=== PATIENT | female | born 1940 | race Caucasian/White ===

== ENCOUNTER 2018-05-25 08:01 | Outpatient (CLI) | payer MEDICARE, OTHER ==
[~2018-05-25 08:01] MED LIST: ASPI81TA52 PO; ATOR10TA87 PO; CARV-49 PO; CLON-529 PO; LISI-600 PO; ZOLP10TA5 PO
[2018-05-25 08:36] LABS: BASOPHILS # (AUTO) 0.1 X10'3 (0-0.2); BASOPHILS % (AUTO) 0.9 % (0-1); EOSINOPHILS # (AUTO) 0.1 X10'3 (0-0.9); EOSINOPHILS % (AUTO) 2.4 % (0-6); HEMATOCRIT 36.7 % (35.0-45.0); HEMOGLOBIN 12.5 g/dl (12.0-16.0); LYMPHOCYTES # (AUTO) 1.3 X10'3 (1.1-4.8); MEAN CORPUSCULAR HEMOGLOBIN 31.3 PG (27.0-31.0); MEAN PLATELET VOLUME 8.3 FL (7.4-10.4); MONOCYTES # (AUTO) 0.4 X10'3 (0-0.9); MONOCYTES % (AUTO) 6.8 % (2-12); NEUTROPHILS # (AUTO) 3.7 X10'3 (1.8-7.7); NEUTROPHILS % (AUTO) 65.9 % (42-75); PLATELET COUNT 223 X10'3 (140-440); RED BLOOD COUNT 3.99 X10'6 (4.20-5.60); RED CELL DISTRIBUTION WIDTH 14.9 % (11.5-14.5); WHITE BLOOD COUNT 5.6 X10'3 (4.5-11.0)
[2018-05-25 08:42] LABS: CLARITY,URINE CLOUDY (Clear); COLOR,URINE STRAW (Yellow); GLUCOSE, URINE NEGATIVE (Neg); KETONES,URINE NEGATIVE (Neg); LEUKOCYTE ESTERASE ,URINE MODERATE (Neg); NITRITES, URINE NEGATIVE (Neg); OCCULT BLOOD,URINE NEGATIVE (Neg); PROTEIN,URINE NEGATIVE (Neg); UROBILINOGEN,URINE 0.2 E.U/dL (0.2-1.0)
[2018-05-25 08:44] LABS: UA COLLECTION TYPE CLN CATCH MIDSTREAM
[2018-05-25 08:53] LABS: ALANINE AMINOTRANSFERASE 14 U/L (12-78); ALBUMIN 3.8 G/DL (3.4-5.0); ALBUMIN/GLOBULIN RATIO 0.9 (1.1-1.5); ALKALINE PHOSPHATASE 127 IU/L (46-116); ANION GAP 8 (8-16); ASPARTATE AMINO TRANSFERASE 8 U/L (10-37); BILIRUBIN,TOTAL 0.5 MG/DL (0.1-1.0); BLOOD UREA NITROGEN 46 MG/DL (7-18); BUN/CREATININE RATIO 17.7 (6.6-38.0); CALCIUM 8.1 MG/DL (8.5-10.1); CHLORIDE 102 MMOL/L (99-107); CHOL/HDL RATIO 3.1 (0.00-4.99); CHOLESTEROL 171 MG/DL (0-200); GLUCOSE 112 MG/DL (70-104); HDL CHOLESTEROL 55 MG/DL (35-60); LDL CHOLESTEROL 93 MG/DL (50-100); POTASSIUM 4.7 MMOL/L (3.5-5.1); SODIUM 137 MMOL/L (135-145); TOTAL PROTEIN 8.2 G/DL (6.4-8.2); TRIGLYCERIDES 139 MG/DL (20-135); eGFR 18 ML/MIN
[2018-05-25 08:55] LABS: BACTERIA,URINE 1+ /HPF (Neg); RBC,URINE NONE SEEN /HPF (0-2); SQUAMOUS EPITHELIAL CELL,UR MANY /LPF (FEW); WBC,URINE 20-30 /HPF (0-4)
[2018-05-25 08:56] LABS: MUCUS STRANDS NONE SEEN /LPF (Neg); RENAL CELLS, URINE MODERATE /HPF; WBC CLUMPS,URINE FEW /HPF (NEGATIVE)
== END 2018-05-25 23:59 | disposition home or self-care (01) ==
LOC: LAB 08:01
PROVIDERS: ATTEND Family Medicine
DX: E78.5 Hyperlipidemia, unspecified (principal); I25.10 Atherosclerotic heart disease of native coronary artery without angina pectoris; R53.83 Other fatigue; I11.0 Hypertensive heart disease with heart failure; I50.9 Heart failure, unspecified; Z87.891 Personal history of nicotine dependence
CPT/HCPCS: 36415; 80053; 80061; 81001; 84443; 85025

== ENCOUNTER 2018-05-25 11:45 | Outpatient (CLI) | payer MEDICARE, OTHER | END 2018-05-25 23:59 | disposition home or self-care (01) | LOC: VAS 11:45 | PROVIDERS: ATTEND Family Medicine | DX: I70.203 Unspecified atherosclerosis of native arteries of extremities, bilateral legs (principal); I11.0 Hypertensive heart disease with heart failure; I50.9 Heart failure, unspecified; Z87.891 Personal history of nicotine dependence | CPT/HCPCS: 93922; 93925; 93970 ==

== ENCOUNTER 2018-08-14 10:22 | Outpatient (CLI) | payer MEDICARE, OTHER ==
[~2018-08-14 10:22] MED LIST changes: +TRAM50TA2 PO; -ZOLP10TA5 PO
[2018-08-14 14:11] LABS: CLARITY,URINE CLEAR (Clear); COLOR,URINE YELLOW (Yellow); GLUCOSE, URINE NEGATIVE (Neg); KETONES,URINE NEGATIVE (Neg); LEUKOCYTE ESTERASE ,URINE SMALL (Neg); NITRITES, URINE NEGATIVE (Neg); OCCULT BLOOD,URINE NEGATIVE (Neg); PH,URINE 5.5 (4.8-8.0); PROTEIN,URINE NEGATIVE (Neg); UROBILINOGEN,URINE 0.2 E.U/dL (0.2-1.0)
[2018-08-14 14:14] LABS: UA COLLECTION TYPE CLN CATCH MIDSTREAM
[2018-08-14 14:20] LABS: RBC,URINE NONE SEEN /HPF (0-2)
[2018-08-14 14:21] LABS: BACTERIA,URINE FEW /HPF (Neg); SQUAMOUS EPITHELIAL CELL,UR MODERATE /LPF (FEW)
[2018-08-14 14:22] LABS: RENAL CELLS, URINE FEW /HPF
== END 2018-08-14 23:59 | disposition home or self-care (01) ==
LOC: LAB 10:22
PROVIDERS: ATTEND Internal Medicine Interventional Cardiology
DX: Z00.00 Encounter for general adult medical examination without abnormal findings (principal); I13.0 Hypertensive heart and chronic kidney disease with heart failure and stage 1 through stage 4 chronic kidney disease, or unspecified chronic kidney disease; N18.9 Chronic kidney disease, unspecified; I50.9 Heart failure, unspecified; Z98.51 Tubal ligation status; Z79.82 Long term (current) use of aspirin; Z87.891 Personal history of nicotine dependence; Z79.891 Long term (current) use of opiate analgesic
CPT/HCPCS: 81001; 87088

== ENCOUNTER 2018-10-08 07:59 | Emergency (ER) | payer MEDICARE, OTHER ==
[~2018-10-08] VITALS: Ht 157.5 cm; Wt 72.7 kg
[~2018-10-08 07:59] MED LIST changes: -TRAM50TA2 PO
[2018-10-08 09:23] LABS: BASOPHILS % (AUTO) 0.5 % (0-1); EOSINOPHILS # (AUTO) 0.1 X10'3 (0-0.9); HEMATOCRIT 31.4 % (35.0-45.0); HEMOGLOBIN 10.4 g/dl (12.0-16.0); LYMPHOCYTES # (AUTO) 1.2 X10'3 (1.1-4.8); LYMPHOCYTES % (AUTO) 26.9 % (21-51); MEAN CORPUSCULAR HEMOGLOBIN 31.3 PG (27.0-31.0); MEAN CORPUSCULAR HGB CONC 33.1 % (33.0-36.5); MEAN CORPUSCULAR VOLUME 94.4 FL (78-98); MEAN PLATELET VOLUME 8.4 FL (7.4-10.4); MONOCYTES # (AUTO) 0.3 X10'3 (0-0.9); NEUTROPHILS # (AUTO) 2.7 X10'3 (1.8-7.7); NEUTROPHILS % (AUTO) 62.6 % (42-75); PLATELET COUNT 215 X10'3 (140-440); RED BLOOD COUNT 3.32 X10'6 (4.20-5.60); RED CELL DISTRIBUTION WIDTH 15.2 % (11.5-14.5); WHITE BLOOD COUNT 4.3 X10'3 (4.5-11.0)
[2018-10-08 09:27] LABS: ALANINE AMINOTRANSFERASE 15 U/L (12-78); ALBUMIN 3.4 G/DL (3.4-5.0); ALBUMIN/GLOBULIN RATIO 0.8 (1.1-1.5); ALKALINE PHOSPHATASE 106 IU/L (46-116); ANION GAP 9 (8-16); ASPARTATE AMINO TRANSFERASE 9 U/L (10-37); BILIRUBIN,TOTAL 0.3 MG/DL (0.1-1.0); BLOOD UREA NITROGEN 38 MG/DL (7-18); BUN/CREATININE RATIO 13.8 (6.6-38.0); CALCIUM 7.6 MG/DL (8.5-10.1); CHLORIDE 102 MMOL/L (99-107); CREATININE 2.75 MG/DL (0.40-0.90); GLUCOSE 93 MG/DL (70-104); POTASSIUM 4.4 MMOL/L (3.5-5.1); SODIUM 139 MMOL/L (135-145); TOTAL CARBON DIOXIDE 27.8 MMOL/L (24-32); TOTAL PROTEIN 7.5 G/DL (6.4-8.2); eGFR 17 ML/MIN
[2018-10-08 10:35] VITALS: BP 107/55
== END 2018-10-08 12:21 | disposition home or self-care (01) ==
LOC: ER 08:01
DX: I73.9 Peripheral vascular disease, unspecified (principal); I13.0 Hypertensive heart and chronic kidney disease with heart failure and stage 1 through stage 4 chronic kidney disease, or unspecified chronic kidney disease; N18.9 Chronic kidney disease, unspecified; I50.9 Heart failure, unspecified; I25.2 Old myocardial infarction; Z87.891 Personal history of nicotine dependence; Z90.710 Acquired absence of both cervix and uterus; Z98.890 Other specified postprocedural states; Z88.5 Allergy status to narcotic agent; Z79.82 Long term (current) use of aspirin; Z79.899 Other long term (current) drug therapy
CPT/HCPCS: 36415; 80053; 85025; 93922; 93926; 99284

== ENCOUNTER 2019-05-21 14:07 | Outpatient (CLI) | payer MEDICARE, OTHER | END 2019-05-21 23:59 | disposition home or self-care (01) | LOC: VAS 14:07 | PROVIDERS: ATTEND Surgery | DX: Z01.818 Encounter for other preprocedural examination (principal) | CPT/HCPCS: 93971 ==

== ENCOUNTER 2020-08-31 21:02 | Inpatient (IN) | payer MEDICARE, OTHER ==
[~2020-08-31] VITALS: Ht 152.4 cm; Wt 65.0 kg
[2020-08-31] MEDS ORDERED: HYDROcodone/acetaminophen 10/325mg tab PO ONE (21:30)
--- NOTE | 2020-08-31 22:06 | NUR ---
DR JACK APPROVED PT DAUGHTER VIVIAN AT BEDSIDE FOR DISCHARGE INSTRUCTIONS .
--- NOTE | 2020-08-31 22:10 | NUR ---
[employer] CALLED UNIT . THEY WILL BE HERE IN 25 MINUTES
--- NOTE | 2020-08-31 22:37 | NUR ---
C[employer] AT BEDSIDE
--- NOTE | 2020-08-31 22:42 | NUR ---
DR JACK TO TALK WITH PT DAUGHTER ABOUT DISCHARGE HOME
[2020-08-31 23:11] LABS: BASOPHILS % (AUTO) 0.5 % (0-1); EOSINOPHILS # (AUTO) 0.2 X10'3 (0-0.9); EOSINOPHILS % (AUTO) 1.9 % (0-6); HEMOGLOBIN 10.7 g/dl (12.0-16.0); LYMPHOCYTES # (AUTO) 1.4 X10'3 (1.1-4.8); LYMPHOCYTES % (AUTO) 18.1 % (21-51); MEAN CORPUSCULAR HEMOGLOBIN 31.6 PG (27.0-31.0); MEAN CORPUSCULAR HGB CONC 32.4 g/dL (33.0-36.5); MEAN CORPUSCULAR VOLUME 97.7 FL (78-98); MEAN PLATELET VOLUME 8.7 FL (7.4-10.4); MONOCYTES # (AUTO) 0.5 X10'3 (0-0.9); MONOCYTES % (AUTO) 6.4 % (2-12); NEUTROPHILS # (AUTO) 5.7 X10'3 (1.8-7.7); NEUTROPHILS % (AUTO) 73.1 % (42-75); PLATELET COUNT 232 X10'3 (140-440); RED BLOOD COUNT 3.38 X10'6 (4.20-5.60); RED CELL DISTRIBUTION WIDTH 14.3 % (11.5-14.5); WHITE BLOOD COUNT 7.8 X10'3 (4.5-11.0)
[2020-08-31 23:26] LABS: ALANINE AMINOTRANSFERASE 14 U/L (12-78); ALBUMIN 3.7 G/DL (3.4-5.0); ALBUMIN/GLOBULIN RATIO 0.9 (1.1-1.5); ALKALINE PHOSPHATASE 120 IU/L (46-116); ANION GAP 11 (8-16); ASPARTATE AMINO TRANSFERASE 9 U/L (10-37); BILIRUBIN,TOTAL 0.4 MG/DL (0.1-1.0); BLOOD UREA NITROGEN 35 MG/DL (7-18); BUN/CREATININE RATIO 14.8 (6.6-38.0); CALCIUM 6.8 MG/DL (8.5-10.1); CHLORIDE 100 MMOL/L (99-107); CREATININE 2.37 MG/DL (0.40-0.90); GLUCOSE 128 MG/DL (70-104); LIPASE 127 U/L (73-393); POTASSIUM 4.4 MMOL/L (3.5-5.1); SODIUM 137 MMOL/L (135-145); TOTAL CARBON DIOXIDE 26.2 MMOL/L (24-32); TOTAL PROTEIN 7.6 G/DL (6.4-8.2); eGFR 20 ML/MIN
--- NOTE | 2020-08-31 23:50 | NUR ---
pt will no longer be discharged home she will be monitored overnight for further evaluation and possible discharge in AM post social service consult .
[2020-09-01] MEDS ORDERED: bisacodyl 10mg suppository rectal RC PRN (00:05)
[2020-09-01] MEDS ORDERED: metoclopramide 5 mg/ml inj IV PRN (00:05)
[2020-09-01] MEDS ORDERED: ondansetron/PF 4mg/2ml inj IV PRN (00:05)
[2020-09-01] MEDS ORDERED: acetaminophen 325mg tablet PO PRN ×2 (00:05)
[2020-09-01] MEDS ORDERED: morphine 2 MG/ML inj. syringe IV PRN ×2 (00:05)
[2020-09-01] MEDS ORDERED: magnesium 2GM in 50ml NS 50 ML IV PRN (00:05)
[2020-09-01] MEDS ORDERED: potassium Cl 20 mEq SR tablet PO PRN ×2 (00:05)
[2020-09-01] MEDS ORDERED: mag hydrox/Alum hydrox/simeth 30ml oral suspension PO PRN (00:05)
[2020-09-01] MEDS ORDERED: potassium CL 10mEq/100ml bag 100 ML IV PRN ×2 (00:05)
[2020-09-01] MEDS ORDERED: magnesium 4gm in 100ml NS 100 ML IV PRN (00:05)
[2020-09-01] MEDS ORDERED: magnesium hydroxide 30ml (MOM) UD suspension PO PRN (00:05)
[2020-09-01] MEDS ORDERED: magnesium Cl slow-release 64mg tablet PO PRN (00:05)
[2020-09-01] MEDS ORDERED: LIDOcaine 2% 10ml TOPICAL JELLY (Urojet) TP ONE (00:15)
[2020-09-01 01:00] LABS: CLARITY,URINE CLEAR (Clear); COLOR,URINE YELLOW (Yellow); GLUCOSE, URINE NEGATIVE (Neg); KETONES,URINE NEGATIVE (Neg); LEUKOCYTE ESTERASE ,URINE NEGATIVE (Neg); NITRITES, URINE NEGATIVE (Neg); OCCULT BLOOD,URINE NEGATIVE (Neg); PH,URINE 5.5 (4.8-8.0); PROTEIN,URINE NEGATIVE (Neg); UROBILINOGEN,URINE 0.2 E.U/dL (0.2-1.0)
[2020-09-01 01:02] LABS: UA COLLECTION TYPE STRAIGHT CATH
[2020-09-01] MEDS: normal saline 1000ml 1,000 ML IV SCH ×2 (01:30→14:23)
[2020-09-01] MEDS ORDERED: HYDROcodone/acetaminophen 5mg/325mg tablet PO PRN (02:30)
[2020-09-01] MEDS ORDERED: HYDROcodone/acetaminophen 10/325mg tab PO PRN (02:30)
--- NOTE | 2020-09-01 02:30 | NUR ---
Dr Fine contacted in regards to patient not wanting a oglesby cath or iv . pt states she" was going to go home without those thtypes of things why do i need them now " pt refusing iv and would prefer po medications . Md verbalized that patient does not have to have an iv placed nor th oglesby as long as she tolerates po intake and is able to void .pt verbalized understanding . iv not started . pt given 2nd dose of norco 10 PO
[2020-09-01] MEDS ORDERED: HYDROcodone/acetaminophen 5mg/325mg tablet PO ONE (02:35)
[2020-09-01] MEDS ORDERED: HYDROcodone/acetaminophen 10/325mg tab PO ONE (02:35)
[2020-09-01 06:15] VITALS: BP 117/65
--- NOTE | 2020-09-01 06:15 | NUR ---
Received pt from ED. Pt transferred from [facility] to bed. Pt has short leg splint on LLE. Elevated on a pillow at this time. Pt denies pain at this time. Spoke with [facility] MINING ANALYST, who informed that she had spoke to Dr. Elva Will who wants the short leg splint removed and pt put in a walking boot. Pt is full WB bilateral LE. (0900) EMIR Poole & EMIR Elizondo attempted to get the pt out of bed to urinate on the BSC. Pt would not stand up on either leg and bear weight. Pt did not stand to transfer and they assisted her back to bed. Pt refuses to have IV started despite orders for NS @ 70/hr. Will continue to monitor.
[2020-09-01] MEDS: K and/or MAG REPLACEMENT MC SCH ×2 (08:00→20:00)
[2020-09-01] MEDS: heparin, porcine 5000 units/ml vial SQ SCH ×2 (08:49→21:23)
[2020-09-01 10:00] VITALS: BP 102/64
--- NOTE | 2020-09-01 17:00 | NUR ---
Pt not drinking fluids today. Encouraged fluids multiple times today as pt has elevated kidney function on BMP. Pt refusing to stand up to BSC despite being full WB, and has been unable to void via bedpan. Bladder scan done at 1700 with 333 cc noted on bladder scan. Discussed with pt that the two options would be either to get a oglesby catheter order from Dr. Washburn or to get up to the bedside commode. Pt voiced she does not want either done. Will pass on to NOCS to bladder scan pt as she has been unable to void since 614.
--- NOTE | 2020-09-01 18:30 | NUR ---
Patient in room ORTHO 4023. I have received report from Kaela BAUTISTA and had the opportunity to ask questions and assume patient care.
--- NOTE | 2020-09-01 18:37 | NUR ---
Problems reprioritized. Patient report given, questions answered & plan of care reviewed with LILY Jolly.
[2020-09-01] MEDS ORDERED: DULO30CA52 PO (19:58)
[2020-09-01] MEDS ORDERED: CLOP75TA35 PO (19:58)
[2020-09-01] MEDS ORDERED: GABA300C PO ×2 (19:58→20:41)
[2020-09-01] MEDS ORDERED: FURO20TA4 PO (19:58)
[2020-09-01] MEDS ORDERED: ATOR20TA66 PO (20:41)
[2020-09-01] MEDS ORDERED: LISI10TA4 PO (20:41)
[2020-09-01] MEDS ORDERED: clopidogrel 75mg tablet PO SCH (21:00)
[2020-09-01] MEDS ORDERED: gabapentin 300mg capsule PO SCH (21:00)
[2020-09-01] MEDS ORDERED: atorvastatin 20mg tablet PO SCH (21:00)
[2020-09-01] MEDS ORDERED: cloNIDine 0.1 mg tablet PO SCH (21:00)
[2020-09-01] MEDS ORDERED: temazepam 15mg capsule PO PRN (21:00)
[2020-09-02] MEDS: normal saline 1000ml 1,000 ML IV SCH (04:41)
[2020-09-02 05:55] VITALS: BP 104/53
[2020-09-02 06:03] LABS: ALBUMIN 3.1 G/DL (3.4-5.0); ANION GAP 12 (8-16); BLOOD UREA NITROGEN 43 MG/DL (7-18); BUN/CREATININE RATIO 16.7 (6.6-38.0); CALCIUM 6.9 MG/DL (8.5-10.1); CHLORIDE 103 MMOL/L (99-107); CREATININE 2.58 MG/DL (0.40-0.90); GLUCOSE 114 MG/DL (70-104); HEMATOCRIT 30.3 % (35.0-45.0); MAGNESIUM 1.9 MG/DL (1.5-2.4); MEAN CORPUSCULAR HEMOGLOBIN 32.8 PG (27.0-31.0); MEAN CORPUSCULAR HGB CONC 33.1 g/dL (33.0-36.5); MEAN CORPUSCULAR VOLUME 98.9 FL (78-98); MEAN PLATELET VOLUME 8.8 FL (7.4-10.4); PLATELET COUNT 212 X10'3 (140-440); POTASSIUM 4.6 MMOL/L (3.5-5.1); RED BLOOD COUNT 3.06 X10'6 (4.20-5.60); RED CELL DISTRIBUTION WIDTH 14.4 % (11.5-14.5); SODIUM 137 MMOL/L (135-145); TOTAL CARBON DIOXIDE 21.8 MMOL/L (24-32); WHITE BLOOD COUNT 6.1 X10'3 (4.5-11.0); eGFR 18 ML/MIN
--- NOTE | 2020-09-02 06:49 | NUR ---
Problems reprioritized. Patient report given, questions answered & plan of care reviewed with Dominique BAUTISTA. .
--- NOTE | 2020-09-02 07:14 | NUR ---
Patient in room ORTHO 4023b. I have received report from Ev BAUTISTA and had the opportunity to ask questions and assume patient care.
[2020-09-02] MEDS: gabapentin 300mg capsule PO SCH ×2 (08:00→11:00)
[2020-09-02] MEDS ORDERED: furosemide 20MG tablet PO SCH (08:00)
[2020-09-02] MEDS: heparin, porcine 5000 units/ml vial SQ SCH (08:00)
[2020-09-02] MEDS ORDERED: carvedilol 6.25mg tablet PO SCH (08:00)
[2020-09-02] MEDS ORDERED: aspirin 81mg tablet.DR PO SCH (08:00)
[2020-09-02] MEDS: K and/or MAG REPLACEMENT MC SCH (08:00)
[2020-09-02] MEDS ORDERED: lisinopril 10 MG tablet PO SCH (08:00)
[2020-09-02] MEDS ORDERED: duloxetine 30mg CAPSULE.DR PO SCH (08:00)
[2020-09-02 10:00] VITALS: BP 107/49
[2020-09-02] MEDS ORDERED: FLU VACC QS2020-21(6MOS UP)/PF 60 MCG/0.5 ML SYRINGE IMVAC ONE (10:00)
--- NOTE | 2020-09-02 13:00 | NUR ---
Gave report to [facility]
--- NOTE | 2020-09-02 13:30 | NUR ---
Tele monitor taken off, pt. changed and informed of transfer, pt's daughter was notified of the transfer
--- NOTE | 2020-09-02 15:30 | NUR ---
Patient was picked up to transfer to [facility]
--- NOTE | 2020-09-02 17:48 | NUR ---
Student documentation: I have reviewed and agree with all interventions, assessments performed and documented by RENETTA TREVINO. Student Medication Administration: For this medication-pass time frame, all medication were reviewed, dispensed, administered and documented per hospital policy by RENETTA TREVION.
[2020-09-02] MEDS ORDERED: gabapentin 300mg capsule PO SCH (21:00)
== END 2020-09-02 14:30 | DRG 563 ==
LOC: ER 21:03 → ED HOLD 09-01 00:02 → ORTHO 4S 09-01 08:02
PROVIDERS: ADMIT Family Medicine; ATTEND Family Medicine
PROC: 2W3TX1Z Immobilization of Left Foot using Splint (ICD-10-PCS; principal; 2020-08-31)
PROC: 3E02340 Introduction of Influenza Vaccine into Muscle, Percutaneous Approach (ICD-10-PCS; 2020-09-02)
DX: S92.355A Nondisplaced fracture of fifth metatarsal bone, left foot, initial encounter for closed fracture (principal); N18.4 Chronic kidney disease, stage 4 (severe); I13.0 Hypertensive heart and chronic kidney disease with heart failure and stage 1 through stage 4 chronic kidney disease, or unspecified chronic kidney disease; Z66 Do not resuscitate; I73.9 Peripheral vascular disease, unspecified; E78.5 Hyperlipidemia, unspecified; I50.9 Heart failure, unspecified; I25.10 Atherosclerotic heart disease of native coronary artery without angina pectoris; W18.39XA Other fall on same level, initial encounter; I25.2 Old myocardial infarction; Z90.710 Acquired absence of both cervix and uterus; Z86.73 Personal history of transient ischemic attack (TIA), and cerebral infarction without residual deficits; Z82.3 Family history of stroke; Y93.89 Activity, other specified; Y92.89 Other specified places as the place of occurrence of the external cause; Y99.8 Other external cause status; Z23 Encounter for immunization
CPT/HCPCS: 29515; 36415; 73564; 73610; 73630; 80048; 80053; 81003; 83690; 83735; 85025; 85027; 93005; 97110; 97161; 97530; 99285; G0378; J1644

== ENCOUNTER 2022-01-17 12:46 | Outpatient (CLI) | payer MEDICARE, OTHER ==
[~2022-01-17 12:46] MED LIST changes: -ATOR10TA87 PO; +ATOR20TA66 PO; +CLOP75TA34 PO; +DULO30CA52 PO; +FURO20TA4 PO; +GABA300C PO; -LISI-600 PO; +LISI10TA27 PO
[2022-01-17 14:03] LABS: ALANINE AMINOTRANSFERASE 17 U/L (12-78); ALBUMIN 3.8 G/DL (3.4-5.0); ALBUMIN/GLOBULIN RATIO 0.9 (1.1-1.5); ALKALINE PHOSPHATASE 154 IU/L (46-116); ANION GAP 12 (8-16); ASPARTATE AMINO TRANSFERASE 7 U/L (10-37); BILIRUBIN,TOTAL 0.3 MG/DL (0.1-1.0); BLOOD UREA NITROGEN 38 MG/DL (7-18); CALCIUM 7.3 MG/DL (8.5-10.1); CHLORIDE 105 MMOL/L (99-107); CREATININE 2.23 MG/DL (0.40-0.90); GLUCOSE 108 MG/DL (70-104); SODIUM 139 MMOL/L (135-145); TOTAL CARBON DIOXIDE 22.2 MMOL/L (24-32); TOTAL PROTEIN 7.9 G/DL (6.4-8.2); eGFR 21 ML/MIN
[2022-01-17 14:14] LABS: HEMOGLOBIN A1C 6.3 % (4.5-6.2)
== END 2022-01-17 23:59 | disposition home or self-care (01) ==
LOC: LAB 12:46
PROVIDERS: ATTEND Family Medicine
DX: N18.32 Chronic kidney disease, stage 3b (principal); R73.03 Prediabetes
CPT/HCPCS: 36415; 80053; 83036

== ENCOUNTER 2022-03-14 05:22 | Emergency (ER) | payer MEDICARE, OTHER ==
[~2022-03-14] VITALS: Ht 157.5 cm; Wt 70.0 kg
[2022-03-14] MEDS ORDERED: ACET-2006 PO (05:53)
[2022-03-14 06:09] LABS: BASOPHILS # (AUTO) 0.1 X10'3 (0-0.2); BASOPHILS % (AUTO) 0.8 % (0-1); EOSINOPHILS # (AUTO) 0.2 X10'3 (0-0.9); EOSINOPHILS % (AUTO) 2.2 % (0-6); HEMOGLOBIN 12.4 g/dl (12.0-16.0); LYMPHOCYTES # (AUTO) 1.2 X10'3 (1.1-4.8); LYMPHOCYTES % (AUTO) 16.1 % (21-51); MEAN CORPUSCULAR HEMOGLOBIN 32.2 PG (27.0-31.0); MEAN CORPUSCULAR HGB CONC 33.5 g/dL (33.0-36.5); MEAN CORPUSCULAR VOLUME 96.3 FL (78-98); MEAN PLATELET VOLUME 8.3 FL (7.4-10.4); MONOCYTES # (AUTO) 0.4 X10'3 (0-0.9); NEUTROPHILS # (AUTO) 5.7 X10'3 (1.8-7.7); NEUTROPHILS % (AUTO) 75.9 % (42-75); PLATELET COUNT 296 X10'3 (140-440); RED BLOOD COUNT 3.84 X10'6 (4.20-5.60); RED CELL DISTRIBUTION WIDTH 14.9 % (11.5-14.5); WHITE BLOOD COUNT 7.6 X10'3 (4.5-11.0)
[2022-03-14 06:30] LABS: ALANINE AMINOTRANSFERASE 12 U/L (12-78); ALBUMIN 3.9 G/DL (3.4-5.0); ALKALINE PHOSPHATASE 146 IU/L (46-116); ANION GAP 12 (8-16); ASPARTATE AMINO TRANSFERASE 8 U/L (10-37); BILIRUBIN,TOTAL 0.4 MG/DL (0.1-1.0); BLOOD UREA NITROGEN 41 MG/DL (7-18); BUN/CREATININE RATIO 15.3 (6.6-38.0); CALCIUM 6.7 MG/DL (8.5-10.1); CHLORIDE 105 MMOL/L (99-107); CREATININE 2.68 MG/DL (0.40-0.90); GLUCOSE 158 MG/DL (70-104); POTASSIUM 4.3 MMOL/L (3.5-5.1); SODIUM 137 MMOL/L (135-145); TOTAL CARBON DIOXIDE 20.2 MMOL/L (24-32); eGFR 17 ML/MIN
[2022-03-14 06:40] LABS: CLARITY,URINE CLEAR (Clear); GLUCOSE, URINE NEGATIVE (Neg); KETONES,URINE NEGATIVE (Neg); LEUKOCYTE ESTERASE ,URINE SMALL (Neg); NITRITES, URINE NEGATIVE (Neg); OCCULT BLOOD,URINE NEGATIVE (Neg); PROTEIN,URINE NEGATIVE (Neg); UROBILINOGEN,URINE 0.2 E.U/dL (0.2-1.0)
[2022-03-14 06:42] LABS: ETHANOL < 0.010 GM/DL (0.0-0.010)
[2022-03-14 06:44] LABS: COLOR,URINE STRAW (Yellow); UA COLLECTION TYPE CLN CATCH MIDSTREAM
[2022-03-14 06:45] LABS: ACETAMINOPHEN < 2.0 UG/ML (10-30)
[2022-03-14 06:51] LABS: BACTERIA,URINE 1+ /HPF (Neg); MUCUS STRANDS NONE SEEN /LPF (Neg); RBC,URINE NONE SEEN /HPF (0-2); SQUAMOUS EPITHELIAL CELL,UR MANY /LPF (FEW)
[2022-03-14 06:52] LABS: URINE AMPHETAMINE SCREEN NEGATIVE (Neg); URINE BARBITUATE SCREEN NEGATIVE (Neg); URINE BENZODIAZEPINES SCREEN NEGATIVE (Neg); URINE CANNABINOID SCREEN NEGATIVE (Neg); URINE COCAINE SCREEN NEGATIVE (Neg); URINE METHADONE SCREEN NEGATIVE (Neg); URINE OPIATE SCREEN NEGATIVE (Neg); URINE PHENCYCLIDINE SCREEN NEGATIVE (Neg)
[2022-03-14 07:57] VITALS: BP 209/123
[2022-03-14 08:28] LABS: CLARITY,URINE CLEAR (Clear); COLOR,URINE YELLOW (Yellow); GLUCOSE, URINE NEGATIVE (Neg); KETONES,URINE NEGATIVE (Neg); LEUKOCYTE ESTERASE ,URINE NEGATIVE (Neg); NITRITES, URINE NEGATIVE (Neg); OCCULT BLOOD,URINE NEGATIVE (Neg); PROTEIN,URINE NEGATIVE (Neg); UROBILINOGEN,URINE 0.2 E.U/dL (0.2-1.0)
[2022-03-14 08:30] LABS: UA COLLECTION TYPE NON-SPECIFIED
== END 2022-03-14 08:33 | disposition home or self-care (01) ==
LOC: ER 05:23
DX: R41.82 Altered mental status, unspecified (principal); R05.9 Cough, unspecified; F03.90 Unspecified dementia, unspecified severity, without behavioral disturbance, psychotic disturbance, mood disturbance, and anxiety; I11.0 Hypertensive heart disease with heart failure; I50.9 Heart failure, unspecified; I25.2 Old myocardial infarction; E78.00 Pure hypercholesterolemia, unspecified; G62.9 Polyneuropathy, unspecified; I12.9 Hypertensive chronic kidney disease with stage 1 through stage 4 chronic kidney disease, or unspecified chronic kidney disease; N18.9 Chronic kidney disease, unspecified; Z72.89 Other problems related to lifestyle; Z88.8 Allergy status to other drugs, medicaments and biological substances; Z79.899 Other long term (current) drug therapy; Z79.82 Long term (current) use of aspirin
CPT/HCPCS: 36415; 70450; 71045; 80053; 80305; 80320; 80329; 81001; 81003; 82140; 84443; 84484; 85025; 93005; 99285

== ENCOUNTER 2022-03-22 07:16 | Inpatient (IN) | payer MEDICARE, OTHER ==
[~2022-03-22] VITALS: Ht 157.5 cm; Wt 70.0 kg
[~2022-03-22 07:16] MED LIST changes: +ACET-2006 PO
[2022-03-22] MEDS ORDERED: CEPH500C2 PO ×2 (08:55)
[2022-03-22] MEDS ORDERED: acetaminophen 325mg tablet PO PRN ×2 (09:35)
[2022-03-22] MEDS ORDERED: POTASSIUM BICARB 20meq eff tab 20 MEQ TABLET.EFF PO PRN ×2 (09:35)
[2022-03-22] MEDS ORDERED: ondansetron/PF 4mg/2ml inj IV PRN (09:35)
[2022-03-22] MEDS ORDERED: potassium CL 10mEq/100ml bag 100 ML IV PRN (09:35)
[2022-03-22] MEDS ORDERED: magnesium 2GM in 50ml NS 50 ML IV PRN (09:35)
[2022-03-22] MEDS ORDERED: magnesium hydroxide 30ml (MOM) UD suspension PO PRN (09:35)
[2022-03-22] MEDS ORDERED: mag hydrox/Alum hydrox/simeth 30ml oral suspension PO PRN (09:35)
[2022-03-22] MEDS ORDERED: acetaminophen 650mg rectal suppository RC PRN (09:35)
[2022-03-22] MEDS ORDERED: ondansetron 4mg rapidly disintigrating tab PO PRN (09:35)
[2022-03-22] MEDS ORDERED: magnesium Cl slow-release 64mg tablet PO PRN (09:35)
[2022-03-22] MEDS ORDERED: magnesium 4gm in 100ml NS 100 ML IV PRN (09:35)
[2022-03-22 10:00] LABS: BASOPHILS # (AUTO) 0.1 X10'3 (0-0.2); BASOPHILS % (AUTO) 0.9 % (0-1); EOSINOPHILS # (AUTO) 0.2 X10'3 (0-0.9); EOSINOPHILS % (AUTO) 2.4 % (0-6); HEMATOCRIT 34.2 % (35.0-45.0); HEMOGLOBIN 11.2 g/dl (12.0-16.0); LYMPHOCYTES # (AUTO) 1.3 X10'3 (1.1-4.8); MEAN CORPUSCULAR HEMOGLOBIN 31.4 PG (27.0-31.0); MEAN CORPUSCULAR HGB CONC 32.8 g/dL (33.0-36.5); MEAN CORPUSCULAR VOLUME 95.9 FL (78-98); MEAN PLATELET VOLUME 8.6 FL (7.4-10.4); MONOCYTES # (AUTO) 0.6 X10'3 (0-0.9); MONOCYTES % (AUTO) 9.3 % (2-12); NEUTROPHILS # (AUTO) 4.3 X10'3 (1.8-7.7); NEUTROPHILS % (AUTO) 67.4 % (42-75); PLATELET COUNT 268 X10'3 (140-440); RED BLOOD COUNT 3.57 X10'6 (4.20-5.60); WHITE BLOOD COUNT 6.4 X10'3 (4.5-11.0)
[2022-03-22] MEDS: cefTRIAXone 1g/NS 100ml IVPB 100 ML IV SCH (10:19)
[2022-03-22 10:25] LABS: ALBUMIN 3.5 G/DL (3.4-5.0); BLOOD UREA NITROGEN 51 MG/DL (7-18); BUN/CREATININE RATIO 17.3 (6.6-38.0); CALCIUM 6.5 MG/DL (8.5-10.1); CREATININE 2.94 MG/DL (0.40-0.90); GLUCOSE 125 MG/DL (70-104); MAGNESIUM 1.8 MG/DL (1.5-2.4); TOTAL CARBON DIOXIDE 22.9 MMOL/L (24-32); eGFR 15 ML/MIN
[2022-03-22 10:40] LABS: ANION GAP 11 (8-16); CHLORIDE 101 MMOL/L (99-107); POTASSIUM 3.8 MMOL/L (3.5-5.1); SODIUM 135 MMOL/L (135-145)
[2022-03-22 11:05] LABS: CLARITY,URINE CLEAR (Clear); GLUCOSE, URINE NEGATIVE (Neg); KETONES,URINE NEGATIVE (Neg); LEUKOCYTE ESTERASE ,URINE NEGATIVE (Neg); NITRITES, URINE NEGATIVE (Neg); OCCULT BLOOD,URINE TRACE-INTACT (Neg); PH,URINE 5.5 (4.8-8.0); PROTEIN,URINE NEGATIVE (Neg); UROBILINOGEN,URINE 0.2 E.U/dL (0.2-1.0)
[2022-03-22 11:08] LABS: COLOR,URINE STRAW (Yellow); UA COLLECTION TYPE STRAIGHT CATH
[2022-03-22 11:15] LABS: BACTERIA,URINE FEW /HPF (Neg); RBC,URINE 0-2 /HPF (0-2); SQUAMOUS EPITHELIAL CELL,UR MODERATE /LPF (FEW); WBC,URINE 0-4 /HPF (0-4)
[2022-03-22] MEDS ORDERED: PERFLUTREN PROTEIN-A MICROSPHR (Optison) 0.22 MG/ML 3ML VIAL IV ONE (12:40)
[2022-03-22] MEDS ORDERED: furosemide 20 MG/2 ML vial IV ONE (12:40)
[2022-03-22] MEDS ORDERED: dexamethasone 1mg tablet PO SCH (14:15)
[2022-03-22] MEDS ORDERED: gabapentin 400mg capsule PO STA (15:46)
[2022-03-22] MEDS ORDERED: gabapentin 300mg capsule PO STA (15:59)
--- NOTE | 2022-03-22 16:26 | NUR ---
pt assisted to bsc, 1 person assist.BMx 1.
[2022-03-22] MEDS: gabapentin 300mg capsule PO SCH (20:00)
[2022-03-22] MEDS: K and/or MAG REPLACEMENT MC SCH (20:00)
[2022-03-22] MEDS: clopidogrel 75mg tablet PO SCH (20:20)
[2022-03-22] MEDS: cloNIDine 0.1 mg tablet PO SCH (20:20)
[2022-03-22] MEDS: docusate sod 100mg capsule PO SCH (20:20)
[2022-03-22] MEDS: atorvastatin 20mg tablet PO SCH (20:20)
[2022-03-22] MEDS: carvedilol 6.25mg tablet PO SCH (20:21)
[2022-03-22] MEDS ORDERED: temazepam 15mg capsule PO PRN (21:00)
[2022-03-22] MEDS ORDERED: gabapentin 300mg capsule PO SCH (21:00)
[2022-03-22 22:00] VITALS: BP 118/78
[2022-03-23 06:00] VITALS: BP 87/45
--- NOTE | 2022-03-23 06:37 | NUR ---
Problems reprioritized. Patient report given, questions answered & plan of care reviewed with kelly Ann.
[2022-03-23 07:51] LABS: BLOOD UREA NITROGEN 59 MG/DL (7-18); CALCIUM 6.6 MG/DL (8.5-10.1); CHLORIDE 104 MMOL/L (99-107); CREATININE 3.11 MG/DL (0.40-0.90); GLUCOSE 129 MG/DL (70-104); POTASSIUM 4.2 MMOL/L (3.5-5.1); SODIUM 140 MMOL/L (135-145); eGFR 14 ML/MIN
[2022-03-23 07:52] LABS: HEMATOCRIT 32.3 % (35.0-45.0); HEMOGLOBIN 10.6 g/dl (12.0-16.0); MEAN CORPUSCULAR HEMOGLOBIN 32.1 PG (27.0-31.0); MEAN CORPUSCULAR HGB CONC 32.9 g/dL (33.0-36.5); MEAN CORPUSCULAR VOLUME 97.3 FL (78-98); PLATELET COUNT 238 X10'3 (140-440); RED BLOOD COUNT 3.32 X10'6 (4.20-5.60); RED CELL DISTRIBUTION WIDTH 14.9 % (11.5-14.5); WHITE BLOOD COUNT 5.7 X10'3 (4.5-11.0)
[2022-03-23 07:53] LABS: ANION GAP 13 (8-16); TOTAL CARBON DIOXIDE 23.3 MMOL/L (24-32)
[2022-03-23] MEDS: K and/or MAG REPLACEMENT MC SCH ×2 (08:00→20:00)
[2022-03-23] MEDS ORDERED: enoxaparin 40mg/0.4ml syringe SUBCUT SCH (08:00)
[2022-03-23] MEDS ORDERED: lisinopril 10 MG tablet PO SCH (08:00)
[2022-03-23] MEDS: cefTRIAXone 1g/NS 100ml IVPB 100 ML IV SCH (09:20)
[2022-03-23] MEDS: duloxetine 30mg CAPSULE.DR PO SCH (09:21)
[2022-03-23] MEDS: carvedilol 6.25mg tablet PO SCH ×2 (09:21→21:35)
[2022-03-23] MEDS: dexamethasone 4mg tablet PO SCH (09:22)
[2022-03-23] MEDS: gabapentin 300mg capsule PO SCH ×2 (09:22→12:35)
[2022-03-23] MEDS: aspirin 81mg, enteric-coated 1 TAB TABLET.DR PO SCH (09:22)
[2022-03-23] MEDS: docusate sod 100mg capsule PO SCH ×2 (09:48→21:34)
[2022-03-23 10:00] VITALS: BP 84/55
[2022-03-23] MEDS ORDERED: enoxaparin 30mg/0.3ml syringe SUBCUT SCH (16:48)
[2022-03-23 18:00] VITALS: BP 148/67
--- NOTE | 2022-03-23 18:16 | NUR ---
Report to Eve Prado RN
--- NOTE | 2022-03-23 18:30 | NUR ---
Patient in room ORTHO 4023. I have received report from MOON BAUTISTA and had the opportunity to ask questions and assume patient care.
[2022-03-23] MEDS: sodium chloride 0.45% 1,000 ML IV SCH (21:34)
[2022-03-23] MEDS: atorvastatin 20mg tablet PO SCH (21:35)
[2022-03-23] MEDS: clopidogrel 75mg tablet PO SCH (21:35)
[2022-03-23] MEDS: cloNIDine 0.1 mg tablet PO SCH (21:35)
[2022-03-23 22:00] VITALS: BP 155/80
[2022-03-24] MEDS: sodium chloride 0.45% 1,000 ML IV SCH ×2 (05:12→13:05)
[2022-03-24 06:00] VITALS: BP 125/78
--- NOTE | 2022-03-24 06:30 | NUR ---
Problems reprioritized. Patient report given, questions answered & plan of care reviewed with JOSSE BAUTISTA.
--- NOTE | 2022-03-24 06:48 | NUR ---
Patient in room ORTHO 4023. I have received report from LILY Chamorro and had the opportunity to ask questions and assume patient care.
[2022-03-24 07:42] LABS: HEMATOCRIT 32.5 % (35.0-45.0); HEMOGLOBIN 10.7 g/dl (12.0-16.0); MEAN PLATELET VOLUME 9.1 FL (7.4-10.4); PLATELET COUNT 252 X10'3 (140-440); RED BLOOD COUNT 3.35 X10'6 (4.20-5.60); RED CELL DISTRIBUTION WIDTH 14.7 % (11.5-14.5); WHITE BLOOD COUNT 6.6 X10'3 (4.5-11.0)
[2022-03-24 07:59] LABS: ALBUMIN 3.1 G/DL (3.4-5.0); ANION GAP 12 (8-16); BLOOD UREA NITROGEN 51 MG/DL (7-18); BUN/CREATININE RATIO 19.7 (6.6-38.0); CALCIUM 6.5 MG/DL (8.5-10.1); CHLORIDE 105 MMOL/L (99-107); CREATININE 2.59 MG/DL (0.40-0.90); GLUCOSE 152 MG/DL (70-104); MAGNESIUM 1.9 MG/DL (1.5-2.4); POTASSIUM 4.2 MMOL/L (3.5-5.1); SODIUM 137 MMOL/L (135-145); TOTAL CARBON DIOXIDE 20.3 MMOL/L (24-32); eGFR 18 ML/MIN
[2022-03-24] MEDS: K and/or MAG REPLACEMENT MC SCH (08:00)
[2022-03-24] MEDS: docusate sod 100mg capsule PO SCH (08:00)
[2022-03-24] MEDS ORDERED: gabapentin 100mg capsule PO SCH (08:00)
[2022-03-24] MEDS: aspirin 81mg, enteric-coated 1 TAB TABLET.DR PO SCH (09:17)
[2022-03-24] MEDS: cefTRIAXone 1g/NS 100ml IVPB 100 ML IV SCH (09:17)
[2022-03-24] MEDS: carvedilol 6.25mg tablet PO SCH (09:17)
[2022-03-24] MEDS: duloxetine 30mg CAPSULE.DR PO SCH (09:18)
[2022-03-24] MEDS: dexamethasone 4mg tablet PO SCH (09:18)
[2022-03-24 10:00] VITALS: BP 138/60
[2022-03-24 14:00] VITALS: BP 130/67
--- NOTE | 2022-03-24 16:00 | NUR ---
Patient was discharged at 1600 and left via [facility] going to . All lines including IV have been removed with cannula intact. Patient is stable and appropriate for discharge.
== END 2022-03-24 16:06 | DRG 553 ==
LOC: ER 07:17 → ED HOLD 09:36 → ORTHO 4S 21:55
PROVIDERS: ADMIT Family Medicine; ATTEND Family Medicine
DX: M10.071 Idiopathic gout, right ankle and foot (principal); N17.0 Acute kidney failure with tubular necrosis; L03.90 Cellulitis, unspecified; I13.0 Hypertensive heart and chronic kidney disease with heart failure and stage 1 through stage 4 chronic kidney disease, or unspecified chronic kidney disease; N18.4 Chronic kidney disease, stage 4 (severe); I50.32 Chronic diastolic (congestive) heart failure; D64.9 Anemia, unspecified; E78.00 Pure hypercholesterolemia, unspecified; E78.5 Hyperlipidemia, unspecified; E83.51 Hypocalcemia; F03.90 Unspecified dementia, unspecified severity, without behavioral disturbance, psychotic disturbance, mood disturbance, and anxiety; I25.10 Atherosclerotic heart disease of native coronary artery without angina pectoris; I27.20 Pulmonary hypertension, unspecified; M10.9 Gout, unspecified; I73.9 Peripheral vascular disease, unspecified; I25.2 Old myocardial infarction; Z90.710 Acquired absence of both cervix and uterus; Z86.73 Personal history of transient ischemic attack (TIA), and cerebral infarction without residual deficits; Z88.8 Allergy status to other drugs, medicaments and biological substances
CPT/HCPCS: 36415; 80048; 81001; 83735; 84443; 84550; 85025; 85027; 87081; 93306; 99285; G0378; J0696; J1650; J1940; J3490

== ENCOUNTER 2022-07-15 09:59 | Outpatient (CLI) | payer MEDICARE, OTHER ==
[~2022-07-15 09:59] MED LIST changes: -ACET-2006 PO
[2022-07-15 11:21] LABS: ALBUMIN 3.6 G/DL (3.4-5.0); ANION GAP 12 (8-16); BLOOD UREA NITROGEN 42 MG/DL (7-18); BUN/CREATININE RATIO 14.2 (6.6-38.0); CALCIUM 7.3 MG/DL (8.5-10.1); CHLORIDE 104 MMOL/L (99-107); CREATININE 2.96 MG/DL (0.40-0.90); GLUCOSE 114 MG/DL (70-104); PHOSPHORUS 4.8 MG/DL (2.3-4.5); POTASSIUM 4.2 MMOL/L (3.5-5.1); SODIUM 141 MMOL/L (135-145); TOTAL CARBON DIOXIDE 24.6 MMOL/L (24-32); eGFR 15 ML/MIN
== END 2022-07-15 23:59 | disposition home or self-care (01) ==
LOC: LAB 09:59
DX: N18.4 Chronic kidney disease, stage 4 (severe) (principal); M10.9 Gout, unspecified; R94.4 Abnormal results of kidney function studies
CPT/HCPCS: 36415; 80069; 84550

== ENCOUNTER 2022-10-11 14:36 | Outpatient (CLI) | payer MEDICARE, OTHER ==
[2022-10-11 15:36] LABS: BASOPHILS % (AUTO) 0.5 % (0-1); EOSINOPHILS # (AUTO) 0.2 X10'3 (0-0.9); EOSINOPHILS % (AUTO) 2.6 % (0-6); HEMATOCRIT 34.1 % (35.0-45.0); HEMOGLOBIN 10.9 g/dl (12.0-16.0); LYMPHOCYTES # (AUTO) 1.5 X10'3 (1.1-4.8); MEAN CORPUSCULAR HEMOGLOBIN 31.3 PG (27.0-31.0); MEAN CORPUSCULAR VOLUME 97.9 FL (78-98); MONOCYTES # (AUTO) 0.6 X10'3 (0-0.9); MONOCYTES % (AUTO) 6.9 % (2-12); NEUTROPHILS # (AUTO) 6.5 X10'3 (1.8-7.7); PLATELET COUNT 284 X10'3 (140-440); RED BLOOD COUNT 3.48 X10'6 (4.20-5.60); RED CELL DISTRIBUTION WIDTH 16.8 % (11.5-14.5); WHITE BLOOD COUNT 8.8 X10'3 (4.5-11.0)
[2022-10-11 15:40] LABS: CLARITY,URINE CLEAR (Clear); COLOR,URINE STRAW (Yellow); GLUCOSE, URINE NEGATIVE (Neg); KETONES,URINE NEGATIVE (Neg); LEUKOCYTE ESTERASE ,URINE NEGATIVE (Neg); NITRITES, URINE NEGATIVE (Neg); OCCULT BLOOD,URINE NEGATIVE (Neg); PROTEIN,URINE NEGATIVE (Neg); UROBILINOGEN,URINE 0.2 E.U/dL (0.2-1.0)
[2022-10-11 15:46] LABS: TOTAL PROTEIN,URINE RANDOM < 6.0 MG/DL
[2022-10-11 15:48] LABS: UA COLLECTION TYPE NON-SPECIFIED
[2022-10-11 16:14] LABS: % IRON SATURATION 20 % (11-46); IRON 68 UG/DL (49-151); TOTAL IRON BINDING CAPACITY 341 UG/DL (259-388)
[2022-10-11 16:24] LABS: ALBUMIN 3.9 G/DL (3.4-5.0); ANION GAP 15 (8-16); BLOOD UREA NITROGEN 35 MG/DL (7-18); BUN/CREATININE RATIO 12.3 (6.6-38.0); CALCIUM 8.2 MG/DL (8.5-10.1); CHLORIDE 102 MMOL/L (99-107); CREATININE 2.84 MG/DL (0.40-0.90); GLUCOSE 101 MG/DL (70-104); POTASSIUM 4.4 MMOL/L (3.5-5.1); SODIUM 140 MMOL/L (135-145); TOTAL CARBON DIOXIDE 23.4 MMOL/L (24-32); eGFR 16 ML/MIN
[2022-10-11 16:38] LABS: FERRITIN 32 NG/ML (8-252)
== END 2022-10-11 23:59 | disposition home or self-care (01) ==
LOC: LAB 14:36
PROVIDERS: ATTEND Internal Medicine Critical Care Medicine
DX: N18.4 Chronic kidney disease, stage 4 (severe) (principal); D63.1 Anemia in chronic kidney disease; R94.4 Abnormal results of kidney function studies; N39.0 Urinary tract infection, site not specified; D50.8 Other iron deficiency anemias; E55.9 Vitamin D deficiency, unspecified; R80.9 Proteinuria, unspecified; M10.9 Gout, unspecified
CPT/HCPCS: 36415; 80069; 81003; 82306; 82570; 82728; 83540; 83550; 83735; 83970; 84156; 84550; 85025

== ENCOUNTER 2023-01-27 20:59 | Emergency (ER) | payer MEDICARE, OTHER ==
[~2023-01-27] VITALS: Ht 154.9 cm; Wt 72.7 kg
[2023-01-27 21:10] VITALS: BP 114/66
[2023-01-27] MEDS ORDERED: HYDROcodone/acetaminophen 5mg/325mg tablet PO ONE (22:15)
== END 2023-01-27 23:22 | disposition home or self-care (01) ==
LOC: ER 20:59
DX: S09.90XA Unspecified injury of head, initial encounter (principal); R07.89 Other chest pain; I13.0 Hypertensive heart and chronic kidney disease with heart failure and stage 1 through stage 4 chronic kidney disease, or unspecified chronic kidney disease; I50.9 Heart failure, unspecified; E78.00 Pure hypercholesterolemia, unspecified; N18.9 Chronic kidney disease, unspecified; Z88.5 Allergy status to narcotic agent; Z90.710 Acquired absence of both cervix and uterus; W01.0XXA Fall on same level from slipping, tripping and stumbling without subsequent striking against object, initial encounter; Y93.89 Activity, other specified; Y92.89 Other specified places as the place of occurrence of the external cause; Y99.8 Other external cause status
CPT/HCPCS: 70450; 71250; 99284

== ENCOUNTER 2023-10-24 13:32 | Inpatient (IN) | payer MEDICARE, OTHER ==
[~2023-10-24] VITALS: Ht 154.9 cm; Wt 73.0 kg
[2023-10-24 14:24] LABS: BASOPHILS % (AUTO) 0.6 % (0-1); EOSINOPHILS # (AUTO) 0.2 X10'3 (0-0.9); EOSINOPHILS % (AUTO) 2.3 % (0-6); HEMATOCRIT 27.1 % (35.0-45.0); HEMOGLOBIN 8.9 g/dl (12.0-16.0); LYMPHOCYTES # (AUTO) 1.1 X10'3 (1.1-4.8); LYMPHOCYTES % (AUTO) 16.9 % (21-51); MEAN CORPUSCULAR HEMOGLOBIN 32.2 PG (27.0-31.0); MEAN CORPUSCULAR HGB CONC 32.9 g/dL (33.0-36.5); MEAN PLATELET VOLUME 9.1 FL (7.4-10.4); MONOCYTES # (AUTO) 0.3 X10'3 (0-0.9); MONOCYTES % (AUTO) 4.4 % (2-12); NEUTROPHILS % (AUTO) 75.8 % (42-75); PLATELET COUNT 254 X10'3 (140-440); RED BLOOD COUNT 2.77 X10'6 (4.20-5.60); RED CELL DISTRIBUTION WIDTH 18.3 % (11.5-14.5); WHITE BLOOD COUNT 6.5 X10'3 (4.5-11.0)
[2023-10-24 14:36] LABS: ALANINE AMINOTRANSFERASE 14 U/L (12-78); ALBUMIN 3.2 G/DL (3.4-5.0); ALBUMIN/GLOBULIN RATIO 0.8 (1.1-1.5); ALKALINE PHOSPHATASE 95 IU/L (46-116); ANION GAP 10 (8-16); ASPARTATE AMINO TRANSFERASE 10 U/L (10-37); BILIRUBIN,TOTAL 0.4 MG/DL (0.1-1.0); BLOOD UREA NITROGEN 78 MG/DL (7-18); BUN/CREATININE RATIO 17.4 (10.0-20.0); CALCIUM 7.5 MG/DL (8.5-10.1); CHLORIDE 102 MMOL/L (99-107); CREATININE 4.48 MG/DL (0.40-0.90); GLUCOSE 110 MG/DL (70-104); POTASSIUM 5.3 MMOL/L (3.5-5.1); SODIUM 133 MMOL/L (135-145); TOTAL CARBON DIOXIDE 21.2 MMOL/L (24-32); eCRCL 7 ML/MIN; eGFR 9 ML/MIN
[2023-10-24 14:43] LABS: PRO BRAIN NATRIURETIC PEPTIDE 374 PG/ML (0-450)
[2023-10-24] MEDS ORDERED: normal saline 1000ml 1,000 ML IV ONE (15:25)
[2023-10-24 15:45] LABS: D-DIMER 4.08 MG/L FEU (0-0.50)
[2023-10-24] MEDS ORDERED: acetaminophen 325mg tablet PO PRN (18:35)
[2023-10-24] MEDS ORDERED: potassium Cl 40MEQ/1/2NS 520ml 520 ML IV PRN (18:35)
[2023-10-24] MEDS ORDERED: ondansetron/PF 4mg/2ml inj IV PRN (18:35)
[2023-10-24] MEDS ORDERED: magnesium hydroxide 30ml (MOM) UD suspension PO PRN (18:35)
[2023-10-24] MEDS ORDERED: magnesium 4gm in 100ml NS 100 ML IV PRN (18:35)
[2023-10-24] MEDS ORDERED: magnesium 2GM in 50ml NS 50 ML IV PRN (18:35)
[2023-10-24] MEDS ORDERED: potassium Cl 20 mEq SR tablet PO PRN ×2 (18:35)
[2023-10-24] MEDS ORDERED: mag hydrox/Alum hydrox/simeth 30ml oral suspension PO PRN (18:35)
[2023-10-24] MEDS ORDERED: magnesium Cl slow-release 64mg tablet PO PRN (18:35)
[2023-10-24] MEDS ORDERED: traMADol 50MG tablet PO ONE (19:10)
[2023-10-24] MEDS: K and/or MAG REPLACEMENT MC SCH (20:00)
[2023-10-24 20:07] LABS: % IRON SATURATION 23 % (11-46); IRON 74 UG/DL (49-151); TOTAL IRON BINDING CAPACITY 324 UG/DL (259-388)
[2023-10-24] MEDS: clopidogrel 75mg tablet PO SCH (20:22)
[2023-10-24] MEDS: docusate sod 100mg capsule PO SCH (20:22)
[2023-10-24] MEDS: heparin, porcine 5000 units/ml vial SQ SCH (20:23)
[2023-10-24] MEDS ORDERED: cloNIDine 0.1 mg tablet PO SCH (21:00)
[2023-10-24] MEDS: normal saline 1000ml 1,000 ML IV SCH (23:01)
[2023-10-25] MEDS: normal saline 1000ml 1,000 ML IV SCH ×4 (05:12→22:15)
[2023-10-25] MEDS ORDERED: lisinopril 10 MG tablet PO SCH (08:00)
[2023-10-25] MEDS ORDERED: furosemide 20MG tablet PO SCH (08:00)
[2023-10-25] MEDS: traMADol 50MG tablet PO PRN ×2 (08:00→17:50)
[2023-10-25] MEDS: docusate sod 100mg capsule PO SCH ×2 (08:36→22:24)
[2023-10-25] MEDS: K and/or MAG REPLACEMENT MC SCH ×2 (08:41→18:50)
[2023-10-25 08:43] LABS: BASOPHILS % (AUTO) 0.7 % (0-1); EOSINOPHILS # (AUTO) 0.2 X10'3 (0-0.9); EOSINOPHILS % (AUTO) 3.3 % (0-6); HEMATOCRIT 31.1 % (35.0-45.0); LYMPHOCYTES # (AUTO) 1.3 X10'3 (1.1-4.8); LYMPHOCYTES % (AUTO) 20.4 % (21-51); MEAN CORPUSCULAR HGB CONC 32.3 g/dL (33.0-36.5); MEAN CORPUSCULAR VOLUME 99.2 FL (78-98); MEAN PLATELET VOLUME 9.1 FL (7.4-10.4); MONOCYTES # (AUTO) 0.4 X10'3 (0-0.9); MONOCYTES % (AUTO) 6.2 % (2-12); NEUTROPHILS # (AUTO) 4.4 X10'3 (1.8-7.7); NEUTROPHILS % (AUTO) 69.4 % (42-75); PLATELET COUNT 267 X10'3 (140-440); RED BLOOD COUNT 3.13 X10'6 (4.20-5.60); RED CELL DISTRIBUTION WIDTH 18.9 % (11.5-14.5); WHITE BLOOD COUNT 6.4 X10'3 (4.5-11.0)
[2023-10-25 09:05] LABS: ALANINE AMINOTRANSFERASE 6 U/L (12-78); ALBUMIN 3.5 G/DL (3.4-5.0); ALBUMIN/GLOBULIN RATIO 0.7 (1.1-1.5); ALKALINE PHOSPHATASE 112 IU/L (46-116); ANION GAP 14 (8-16); ASPARTATE AMINO TRANSFERASE 13 U/L (10-37); BILIRUBIN,TOTAL 0.4 MG/DL (0.1-1.0); BLOOD UREA NITROGEN 75 MG/DL (7-18); BUN/CREATININE RATIO 18.9 (10.0-20.0); CHLORIDE 106 MMOL/L (99-107); CREATININE 3.96 MG/DL (0.40-0.90); POTASSIUM 4.7 MMOL/L (3.5-5.1); SODIUM 138 MMOL/L (135-145); TOTAL CARBON DIOXIDE 17.6 MMOL/L (24-32); TOTAL PROTEIN 8.6 G/DL (6.4-8.2); eCRCL 8 ML/MIN; eGFR 11 ML/MIN
[2023-10-25 09:09] LABS: GLUCOSE 93 MG/DL (70-104)
[2023-10-25] MEDS: heparin, porcine 5000 units/ml vial SQ SCH ×2 (09:10→22:27)
[2023-10-25 09:32] LABS: PLATELET ESTIMATE NORMAL
[2023-10-25 09:33] LABS: ANISOCYTOSIS 2+; BURR CELLS FEW; ELLIPTOCYTES FEW; TEAR DROP CELLS FEW
[2023-10-25] MEDS ORDERED: HYDROcodone/acetaminophen 5mg/325mg tablet PO PRN (10:35)
[2023-10-25 13:37] LABS: BILIRUBIN,URINE NEGATIVE (Neg); CLARITY,URINE CLEAR (Clear); COLOR,URINE STRAW (Yellow); GLUCOSE, URINE NEGATIVE (Neg); KETONES,URINE NEGATIVE (Neg); LEUKOCYTE ESTERASE ,URINE NEGATIVE (Neg); NITRITES, URINE NEGATIVE (Neg); OCCULT BLOOD,URINE SMALL (Neg); PROTEIN,URINE NEGATIVE (Neg); UROBILINOGEN,URINE 0.2 E.U/dL (0.2-1.0)
[2023-10-25] MEDS ORDERED: morphine 2 MG/ML inj. syringe IV PRN (13:45)
[2023-10-25 13:47] LABS: UA COLLECTION TYPE CLN CATCH MIDSTREAM
[2023-10-25 13:48] LABS: BACTERIA,URINE FEW /HPF (Neg); RBC,URINE 0-2 /HPF (0-2); SQUAMOUS EPITHELIAL CELL,UR MODERATE /LPF (FEW); TRANSITIONAL EPI CELLS,URINE MODERATE /HPF
[2023-10-25 14:46] LABS: UA EOSINOPHILS NO EOS /HPF
[2023-10-25] MEDS: duloxetine 30mg CAPSULE.DR PO SCH (18:49)
[2023-10-25 21:00] VITALS: BP_SYST 108; BP_SYST 110; BP_DIAS 66; BP_DIAS 69; PULSE 107; PULSE 108; RESP 17; TEMP 97.3; O2SAT 94
[2023-10-25 21:40] VITALS: RESP 18; O2SAT 95
[2023-10-25 22:00] VITALS: BP 106/72; PULSE 112; RESP 18; TEMP 97.9; O2SAT 95
[2023-10-25] MEDS: gabapentin 300mg capsule PO SCH (22:23)
[2023-10-25] MEDS: atorvastatin 20mg tablet PO SCH (22:23)
[2023-10-25] MEDS: clopidogrel 75mg tablet PO SCH (22:24)
[2023-10-26 06:30] VITALS: BP 123/82; PULSE 119; RESP 14; TEMP 98.1; O2SAT 97
[2023-10-26 08:00] VITALS: BP_SYST 136; BP_SYST 146; BP_SYST 160; BP_DIAS 120; BP_DIAS 134; BP_DIAS 70; PULSE 116; PULSE 119; PULSE 120; RESP 14; O2SAT 97
[2023-10-26] MEDS: K and/or MAG REPLACEMENT MC SCH ×2 (08:00→20:00)
[2023-10-26 08:02] LABS: BASOPHILS % (AUTO) 0.6 % (0-1); EOSINOPHILS # (AUTO) 0.2 X10'3 (0-0.9); EOSINOPHILS % (AUTO) 2.7 % (0-6); HEMATOCRIT 29.7 % (35.0-45.0); HEMOGLOBIN 9.4 g/dl (12.0-16.0); LYMPHOCYTES # (AUTO) 1.1 X10'3 (1.1-4.8); LYMPHOCYTES % (AUTO) 19.7 % (21-51); MEAN CORPUSCULAR HEMOGLOBIN 31.5 PG (27.0-31.0); MEAN CORPUSCULAR HGB CONC 31.7 g/dL (33.0-36.5); MEAN CORPUSCULAR VOLUME 99.3 FL (78-98); MEAN PLATELET VOLUME 9.3 FL (7.4-10.4); MONOCYTES # (AUTO) 0.4 X10'3 (0-0.9); MONOCYTES % (AUTO) 7.7 % (2-12); NEUTROPHILS % (AUTO) 69.3 % (42-75); PLATELET COUNT 266 X10'3 (140-440); RED BLOOD COUNT 2.99 X10'6 (4.20-5.60); RED CELL DISTRIBUTION WIDTH 18.8 % (11.5-14.5); WHITE BLOOD COUNT 5.7 X10'3 (4.5-11.0)
[2023-10-26 08:10] LABS: ALANINE AMINOTRANSFERASE 9 U/L (12-78); ALBUMIN 3.1 G/DL (3.4-5.0); ALBUMIN/GLOBULIN RATIO 0.8 (1.1-1.5); ALKALINE PHOSPHATASE 99 IU/L (46-116); ANION GAP 14 (8-16); ASPARTATE AMINO TRANSFERASE 10 U/L (10-37); BILIRUBIN,TOTAL 0.3 MG/DL (0.1-1.0); BLOOD UREA NITROGEN 64 MG/DL (7-18); BUN/CREATININE RATIO 17.9 (10.0-20.0); CALCIUM 7.9 MG/DL (8.5-10.1); CHLORIDE 109 MMOL/L (99-107); CREATININE 3.58 MG/DL (0.40-0.90); GLUCOSE 119 MG/DL (70-104); MAGNESIUM 1.9 MG/DL (1.5-2.4); POTASSIUM 5.1 MMOL/L (3.5-5.1); SODIUM 142 MMOL/L (135-145); TOTAL CARBON DIOXIDE 18.8 MMOL/L (24-32); TOTAL PROTEIN 7.1 G/DL (6.4-8.2); eCRCL 9 ML/MIN; eGFR 12 ML/MIN
[2023-10-26] MEDS: gabapentin 300mg capsule PO SCH (08:17)
[2023-10-26] MEDS: heparin, porcine 5000 units/ml vial SQ SCH ×2 (08:17→21:40)
[2023-10-26] MEDS: duloxetine 30mg CAPSULE.DR PO SCH (08:17)
[2023-10-26] MEDS: docusate sod 100mg capsule PO SCH ×2 (08:17→21:39)
[2023-10-26] MEDS: traMADol 50MG tablet PO PRN (09:04)
[2023-10-26 18:00] VITALS: BP 105/67; PULSE 115; RESP 16; TEMP 97; O2SAT 93
[2023-10-26 19:18] LABS: D-DIMER 3.71 MG/L FEU (0-0.50)
[2023-10-26 20:00] VITALS: RESP 18; O2SAT 95
[2023-10-26] MEDS: carvedilol 6.25mg tablet PO SCH (21:38)
[2023-10-26] MEDS: clopidogrel 75mg tablet PO SCH (21:39)
[2023-10-26] MEDS: atorvastatin 20mg tablet PO SCH (21:39)
[2023-10-26 22:00] VITALS: BP_SYST 152; BP_SYST 157; BP_DIAS 63; BP_DIAS 88; PULSE 104; PULSE 75; PULSE 94; RESP 18; TEMP 98.7; O2SAT 95
[2023-10-27] MEDS ORDERED: diazepam inj 5 MG/ML inj. IV PRN (01:25)
[2023-10-27 06:00] VITALS: BP 157/83; PULSE 110; RESP 16; TEMP 97.8; O2SAT 94
[2023-10-27 06:28] LABS: BASOPHILS % (AUTO) 0.5 % (0-1); EOSINOPHILS # (AUTO) 0.2 X10'3 (0-0.9); EOSINOPHILS % (AUTO) 2.2 % (0-6); HEMATOCRIT 28.5 % (35.0-45.0); LYMPHOCYTES # (AUTO) 1.3 X10'3 (1.1-4.8); MEAN CORPUSCULAR HEMOGLOBIN 31.8 PG (27.0-31.0); MEAN CORPUSCULAR HGB CONC 31.7 g/dL (33.0-36.5); MEAN CORPUSCULAR VOLUME 100.3 FL (78-98); MEAN PLATELET VOLUME 9.3 FL (7.4-10.4); MONOCYTES # (AUTO) 0.6 X10'3 (0-0.9); MONOCYTES % (AUTO) 7.7 % (2-12); NEUTROPHILS % (AUTO) 73.6 % (42-75); PLATELET COUNT 234 X10'3 (140-440); RED BLOOD COUNT 2.84 X10'6 (4.20-5.60); RED CELL DISTRIBUTION WIDTH 18.5 % (11.5-14.5); WHITE BLOOD COUNT 8.1 X10'3 (4.5-11.0)
[2023-10-27 06:33] LABS: ALANINE AMINOTRANSFERASE 13 U/L (12-78); ALBUMIN/GLOBULIN RATIO 0.8 (1.1-1.5); ALKALINE PHOSPHATASE 88 IU/L (46-116); ANION GAP 12 (8-16); ASPARTATE AMINO TRANSFERASE 10 U/L (10-37); BILIRUBIN,TOTAL 0.3 MG/DL (0.1-1.0); BLOOD UREA NITROGEN 60 MG/DL (7-18); BUN/CREATININE RATIO 16.6 (10.0-20.0); CALCIUM 8.3 MG/DL (8.5-10.1); CHLORIDE 109 MMOL/L (99-107); CREATININE 3.62 MG/DL (0.40-0.90); GLUCOSE 132 MG/DL (70-104); POTASSIUM 4.8 MMOL/L (3.5-5.1); SODIUM 141 MMOL/L (135-145); TOTAL CARBON DIOXIDE 20.2 MMOL/L (24-32); eCRCL 9 ML/MIN; eGFR 12 ML/MIN
[2023-10-27] MEDS: K and/or MAG REPLACEMENT MC SCH ×2 (08:00→20:00)
[2023-10-27] MEDS ORDERED: gabapentin 100mg capsule PO SCH (08:00)
[2023-10-27] MEDS: docusate sod 100mg capsule PO SCH ×2 (08:32→21:58)
[2023-10-27] MEDS: duloxetine 30mg CAPSULE.DR PO SCH (08:32)
[2023-10-27] MEDS: carvedilol 6.25mg tablet PO SCH ×2 (08:32→21:58)
[2023-10-27] MEDS: heparin, porcine 5000 units/ml vial SQ SCH ×2 (08:33→21:59)
[2023-10-27 11:00] VITALS: BP 129/63; PULSE 108; RESP 12; TEMP 98.9; O2SAT 98
[2023-10-27 11:54] VITALS: BP_SYST 109; BP_SYST 129; BP_SYST 82; BP_DIAS 61; BP_DIAS 63; BP_DIAS 84; PULSE 108; PULSE 110; PULSE 113
[2023-10-27] MEDS ORDERED: ringers solution, lactated 500ml IV solution IV SCH (12:40)
[2023-10-27] MEDS: ringers solution, lacted 1,000 ML IV SCH (16:20)
[2023-10-27] MEDS: traMADol 50MG tablet PO PRN ×2 (16:51→21:59)
[2023-10-27 17:05] LABS: A/G RATIO 0.9 (0.7-1.7); ALBUMIN 3.3 g/dL (2.9-4.4); ALPHA-1-GLOBULIN 0.3 g/dL (0.0-0.4); BETA GLOBULIN 1.1 g/dL (0.7-1.3); GAMMA GLOBULIN 1.3 g/dL (0.4-1.8); GLOBULIN, TOTAL 3.7 g/dL (2.2-3.9); M-SPIKE 0.5 g/dL (Not Observed)
[2023-10-27 17:09] LABS: ALBUMIN, UR Note: % (.); PROTEIN,TOTAL,URINE 5.4 mg/dL (Not Estab.)
[2023-10-27 17:30] LABS: BILIRUBIN,URINE NEGATIVE (Neg); CLARITY,URINE CLEAR (Clear); COLOR,URINE STRAW (Yellow); GLUCOSE, URINE NEGATIVE (Neg); KETONES,URINE NEGATIVE (Neg); LEUKOCYTE ESTERASE ,URINE NEGATIVE (Neg); NITRITES, URINE NEGATIVE (Neg); OCCULT BLOOD,URINE TRACE-INTACT (Neg); PH,URINE 5.5 (4.8-8.0); PROTEIN,URINE NEGATIVE (Neg); UROBILINOGEN,URINE 0.2 E.U/dL (0.2-1.0)
[2023-10-27 17:38] LABS: UA COLLECTION TYPE CLN CATCH MIDSTREAM
[2023-10-27 17:39] LABS: BACTERIA,URINE FEW /HPF (Neg); MUCUS STRANDS NONE SEEN /LPF (Neg); RBC,URINE 0-2 /HPF (0-2); SQUAMOUS EPITHELIAL CELL,UR FEW /LPF (FEW); WBC,URINE 0-4 /HPF (0-4)
[2023-10-27 17:40] LABS: RENAL CELLS, URINE FEW /HPF
[2023-10-27 18:00] VITALS: BP 115/66; PULSE 118; RESP 18; TEMP 98.2; O2SAT 96
[2023-10-27 20:10] VITALS: RESP 20; O2SAT 96
[2023-10-27] MEDS: atorvastatin 20mg tablet PO SCH (21:58)
[2023-10-27] MEDS: traZODone 50mg tablet PO SCH (21:58)
[2023-10-27] MEDS: clopidogrel 75mg tablet PO SCH (21:58)
[2023-10-27 22:00] VITALS: BP 130/67; PULSE 105; RESP 16; TEMP 98.5; O2SAT 91
[2023-10-28] VITALS (7 sets, daily range): BP systolic 107–150; BP diastolic 48–78; PULSE 71–104; RESP 15–18; TEMP 97.6–98.6; O2SAT 90–96
[2023-10-28 04:15] LABS: BASOPHILS % (AUTO) 0.9 % (0-1); EOSINOPHILS # (AUTO) 0.2 X10'3 (0-0.9); EOSINOPHILS % (AUTO) 4.1 % (0-6); HEMATOCRIT 25.6 % (35.0-45.0); HEMOGLOBIN 8.2 g/dl (12.0-16.0); LYMPHOCYTES # (AUTO) 1.3 X10'3 (1.1-4.8); LYMPHOCYTES % (AUTO) 22.7 % (21-51); MEAN CORPUSCULAR HEMOGLOBIN 32.3 PG (27.0-31.0); MEAN CORPUSCULAR VOLUME 100.7 FL (78-98); MEAN PLATELET VOLUME 9.3 FL (7.4-10.4); MONOCYTES # (AUTO) 0.4 X10'3 (0-0.9); MONOCYTES % (AUTO) 6.9 % (2-12); NEUTROPHILS # (AUTO) 3.8 X10'3 (1.8-7.7); NEUTROPHILS % (AUTO) 65.4 % (42-75); PLATELET COUNT 181 X10'3 (140-440); RED BLOOD COUNT 2.54 X10'6 (4.20-5.60); RED CELL DISTRIBUTION WIDTH 19.2 % (11.5-14.5); WHITE BLOOD COUNT 5.7 X10'3 (4.5-11.0)
[2023-10-28 04:33] LABS: ALANINE AMINOTRANSFERASE 12 U/L (12-78); ALBUMIN 2.8 G/DL (3.4-5.0); ALBUMIN/GLOBULIN RATIO 0.7 (1.1-1.5); ALKALINE PHOSPHATASE 78 IU/L (46-116); ANION GAP 10 (8-16); ASPARTATE AMINO TRANSFERASE 11 U/L (10-37); BILIRUBIN,TOTAL 0.3 MG/DL (0.1-1.0); BLOOD UREA NITROGEN 55 MG/DL (7-18); BUN/CREATININE RATIO 15.8 (10.0-20.0); CALCIUM 8.3 MG/DL (8.5-10.1); CHLORIDE 111 MMOL/L (99-107); CREATININE 3.49 MG/DL (0.40-0.90); GLUCOSE 101 MG/DL (70-104); MAGNESIUM 1.9 MG/DL (1.5-2.4); POTASSIUM 5.2 MMOL/L (3.5-5.1); SODIUM 142 MMOL/L (135-145); TOTAL CARBON DIOXIDE 21.2 MMOL/L (24-32); TOTAL PROTEIN 6.6 G/DL (6.4-8.2); eCRCL 9 ML/MIN; eGFR 13 ML/MIN
[2023-10-28 04:35] LABS: LACTIC SEPSIS 0.5 MMOL/L (0.4-2.0)
[2023-10-28 04:38] LABS: AMMONIA < 10 UMOL/L (11-32)
[2023-10-28 04:45] LABS: PLATELET ESTIMATE NORMAL
[2023-10-28 04:46] LABS: ANISOCYTOSIS 2+
[2023-10-28] MEDS: ringers solution, lacted 1,000 ML IV SCH (05:52)
[2023-10-28] MEDS: K and/or MAG REPLACEMENT MC SCH ×2 (08:00→20:00)
[2023-10-28] MEDS: duloxetine 30mg CAPSULE.DR PO SCH (08:47)
[2023-10-28] MEDS: carvedilol 6.25mg tablet PO SCH ×2 (08:47→19:54)
[2023-10-28] MEDS: heparin, porcine 5000 units/ml vial SQ SCH ×2 (08:47→19:56)
[2023-10-28] MEDS: docusate sod 100mg capsule PO SCH ×2 (08:47→19:54)
[2023-10-28] MEDS ORDERED: furosemide 20 MG/2 ML vial IV ONE (11:05)
[2023-10-28] MEDS: traZODone 50mg tablet PO SCH (19:54)
[2023-10-28] MEDS: traMADol 50MG tablet PO PRN (19:55)
[2023-10-28] MEDS: atorvastatin 20mg tablet PO SCH (19:55)
[2023-10-28] MEDS: clopidogrel 75mg tablet PO SCH (19:55)
[2023-10-29 06:00] VITALS: BP 155/82; PULSE 86; RESP 16; TEMP 97.5; O2SAT 94
[2023-10-29 06:24] LABS: BASOPHILS # (AUTO) 0.1 X10'3 (0-0.2); BASOPHILS % (AUTO) 1.2 % (0-1); EOSINOPHILS # (AUTO) 0.3 X10'3 (0-0.9); EOSINOPHILS % (AUTO) 5.3 % (0-6); HEMATOCRIT 26.6 % (35.0-45.0); HEMOGLOBIN 8.7 g/dl (12.0-16.0); LYMPHOCYTES # (AUTO) 1.2 X10'3 (1.1-4.8); LYMPHOCYTES % (AUTO) 20.7 % (21-51); MEAN CORPUSCULAR HEMOGLOBIN 32.3 PG (27.0-31.0); MEAN CORPUSCULAR HGB CONC 32.7 g/dL (33.0-36.5); MEAN CORPUSCULAR VOLUME 98.7 FL (78-98); MEAN PLATELET VOLUME 9.6 FL (7.4-10.4); MONOCYTES # (AUTO) 0.4 X10'3 (0-0.9); NEUTROPHILS # (AUTO) 3.9 X10'3 (1.8-7.7); NEUTROPHILS % (AUTO) 65.8 % (42-75); PLATELET COUNT 205 X10'3 (140-440); RED BLOOD COUNT 2.69 X10'6 (4.20-5.60); RED CELL DISTRIBUTION WIDTH 18.5 % (11.5-14.5); WHITE BLOOD COUNT 5.9 X10'3 (4.5-11.0)
[2023-10-29 06:36] LABS: ALANINE AMINOTRANSFERASE 12 U/L (12-78); ALBUMIN 2.9 G/DL (3.4-5.0); ALBUMIN/GLOBULIN RATIO 0.7 (1.1-1.5); ALKALINE PHOSPHATASE 79 IU/L (46-116); ANION GAP 11 (8-16); ASPARTATE AMINO TRANSFERASE 10 U/L (10-37); BILIRUBIN,TOTAL 0.5 MG/DL (0.1-1.0); BLOOD UREA NITROGEN 56 MG/DL (7-18); BUN/CREATININE RATIO 17.7 (10.0-20.0); CALCIUM 8.3 MG/DL (8.5-10.1); CHLORIDE 107 MMOL/L (99-107); CREATININE 3.16 MG/DL (0.40-0.90); GLUCOSE 87 MG/DL (70-104); POTASSIUM 4.8 MMOL/L (3.5-5.1); SODIUM 140 MMOL/L (135-145); TOTAL CARBON DIOXIDE 22.2 MMOL/L (24-32); TOTAL PROTEIN 6.8 G/DL (6.4-8.2); eCRCL 10 ML/MIN; eGFR 14 ML/MIN
[2023-10-29 08:00] VITALS: BP_SYST 125; BP_SYST 146; BP_SYST 148; BP_DIAS 68; BP_DIAS 77; BP_DIAS 79; PULSE 100; PULSE 105; PULSE 109
[2023-10-29] MEDS: K and/or MAG REPLACEMENT MC SCH (08:00)
[2023-10-29] MEDS: docusate sod 100mg capsule PO SCH (09:29)
[2023-10-29] MEDS: carvedilol 6.25mg tablet PO SCH (09:30)
[2023-10-29] MEDS: duloxetine 30mg CAPSULE.DR PO SCH (09:30)
[2023-10-29] MEDS: heparin, porcine 5000 units/ml vial SQ SCH (09:31)
[2023-10-29 10:00] VITALS: BP 146/68; PULSE 100; RESP 11; TEMP 97.3; O2SAT 98
[2023-10-29] MEDS ORDERED: normal saline 500ml IV soln 500 ML IV ONE (11:45)
[2023-10-29 14:40] VITALS: BP_SYST 127; BP_SYST 130; BP_SYST 138; BP_DIAS 64; BP_DIAS 70; BP_DIAS 73; PULSE 100; PULSE 92; PULSE 99
== END 2023-10-29 15:04 | DRG 682 ==
LOC: ER 13:32 → ED HOLD 18:41 → ORTHO 4S 10-25 21:00
PROVIDERS: ADMIT Internal Medicine; ATTEND Internal Medicine
PROC: CB221ZZ Tomographic (Tomo) Nuclear Medicine Imaging of Lungs and Bronchi using Technetium 99m (Tc-99m) (ICD-10-PCS; principal; 2023-10-27)
DX: N17.9 Acute kidney failure, unspecified (principal); G93.41 Metabolic encephalopathy; J96.01 Acute respiratory failure with hypoxia; S22.080A Wedge compression fracture of T11-T12 vertebra, initial encounter for closed fracture; C90.00 Multiple myeloma not having achieved remission; I13.0 Hypertensive heart and chronic kidney disease with heart failure and stage 1 through stage 4 chronic kidney disease, or unspecified chronic kidney disease; E87.1 Hypo-osmolality and hyponatremia; N18.5 Chronic kidney disease, stage 5; I95.1 Orthostatic hypotension; E87.5 Hyperkalemia; E78.00 Pure hypercholesterolemia, unspecified; I73.9 Peripheral vascular disease, unspecified; G62.9 Polyneuropathy, unspecified; M10.9 Gout, unspecified; X58.XXXA Exposure to other specified factors, initial encounter; I50.9 Heart failure, unspecified; I25.2 Old myocardial infarction; Z82.3 Family history of stroke; Z86.73 Personal history of transient ischemic attack (TIA), and cerebral infarction without residual deficits; Z87.891 Personal history of nicotine dependence; Z90.710 Acquired absence of both cervix and uterus; Z88.5 Allergy status to narcotic agent; Z79.899 Other long term (current) drug therapy; Y93.89 Activity, other specified; Y92.89 Other specified places as the place of occurrence of the external cause; Y99.8 Other external cause status
CPT/HCPCS: 36415; 70450; 71045; 71250; 74176; 78582; 80053; 81001; 82140; 82570; 83540; 83550; 83605; 83735; 83880; 84145; 84155; 84156; 84165; 84166; 84300; 84484; 85008; 85025; 85379; 87081; 87207; 93005; 93970; 97110; 97116; 97161; 97530; 99285; A4615; A6258; A9539; A9540; C1758; G0378; J1644; J1940; J2270; J2405; J7030; J7040; J7120

== ENCOUNTER → 2023-12-29 | Outpatient (CLI) | payer MEDICARE, OTHER ==
[~2023-12-29] MED LIST changes: -ASPI81TA52 PO; -CARV-49 PO
== END | disposition home or self-care (01) ==
LOC: RAD 11:32
PROVIDERS: ATTEND Registered Nurse
DX: S99.921A Unspecified injury of right foot, initial encounter (principal); M77.31 Calcaneal spur, right foot; M25.774 Osteophyte, right foot; M79.671 Pain in right foot; Z87.39 Personal history of other diseases of the musculoskeletal system and connective tissue; X58.XXXA Exposure to other specified factors, initial encounter; Y93.89 Activity, other specified; Y92.89 Other specified places as the place of occurrence of the external cause; Y99.8 Other external cause status
CPT/HCPCS: 36415; 73610; 73630; 84550

== ENCOUNTER 2025-08-18 14:14 | Emergency (ER) | payer MEDICARE, OTHER ==
[~2025-08-18] VITALS: Ht 152.4 cm; Wt 61.8 kg
[~2025-08-18 14:14] MED LIST changes: +ALLO100T PO; +ATOR20TA PO; -ATOR20TA66 PO; -CLON-529 PO; +CLON0.1T2 PO; +DULO-31 PO; -DULO30CA52 PO; +FURO-150 PO; -FURO20TA4 PO
[2025-08-18 14:16] VITALS: BP 162/75; PULSE 92; RESP 18; TEMP 98.5; O2SAT 98
--- NOTE | 2025-08-18 14:52 | Physician Documentation ---
History of Present Illness ~ Chief Complaint: Leg Pain Stated Complaint: BLOOD BLISTER Time Seen by MD: 14:38 Primary Medical Doctor: Ulises Fine MD HPI 84-year-old female presents to the ED with a complaint of right lower extremity pain. States she has a hematoma on the medial aspect of her right lower extremity. Additionally she states she has a skin tear on the posterior of her left lower extremity with increased redness in the surrounding tissue. There is any fever or nausea vomiting. States that her right calf is painful . Patient is on prescribed blood thinners Day of Onset: Aug 18, 2025 Tetanus witin 5 years: No Medication Reconciliation Allergies: Coded Allergies: hydromorphone (Verified Adverse Reaction, Unknown, hallucinations, 08/18/25) Scheduled Allopurinol* (Allopurinol*), 2 TAB PO DAILY, (Reported) Atorvastatin Calcium* (Lipitor*), 1 TABLET PO HS, (Reported) Cephalexin*Monohydrate* (Keflex*), 1 CAP PO Q8H Clonidine HCl (Clonidine HCl), 1 TAB PO HS, (Reported) Clopidogrel Bisulfate (Clopidogrel), 1 TAB PO DAILY, (Reported) Duloxetine Hcl* (Cymbalta*), 60 MG PO HS, (Reported) Furosemide* (Lasix*), 1 TAB PO DAILY, (Reported) Gabapentin (Neurontin), 2 CAP PO BID, (Reported) Lisinopril (Lisinopril), 5 MG PO DAILY, (Reported) Past Medical History Past Medical History: Peripheral Neuropathy, *CARDIOVASCULAR*, Congestive Heart Failure, High Cholesterol, Hypertension, Myocardial Infarction, Chronic Kidney Disease Past Surgical History: hysterectomy, orthopedic surgeries, other Patient History: (CVA) Cerebrovascular accident CHILD, Onset:Unknown (Cancer) Malignant carcinoid tumor FATHER, Name: anali (lung cancer), , Onset:Unknown Alcohol Use: Rarely Drug Use: none Lives with: Family Lives In: Home Occupation: disabled Review of Systems All Other Systems at this time: Reviewed and Negative ROS As stated above in the HPI, otherwise all systems are reviewed and negative. Physical Exam Vital Signs: Temperature: 98.5, Source: Temporal, Heart Rate: 92, Respiratory Rate: 18, BP: 162/75, Pulse Oximetry: 98, Weight: 61.820 Oxygen Flow Rate: 0 Physical Exam General: Alert, no apparent distress. cardiovascular: Regular rate and rhythm, no murmurs. Gastrointestinal: Soft, nontender, nondistended. Bowels sounds present. Extremities: Normal range of motion, no deformity. Positive Homans who right lower extremity there is a notable hematoma approximately 3 cm in width, left leg has a healing skin tear on the post tear of the calf with surrounding erythema. No drainage Neurologic: Oriented x4. Psychiatric: Normal mood and affect. Skin: Normal color, warm and dry. No edema, no ecchymosis. Progress Results/Orders Results/Orders Orders - ORIANA JAUREGUI NP Vl Venous (08/18/25 ) Completed Orders - ORIANA JAUREGUI NP Vl Venous (08/18/25 ) Vital Signs 08/18/25 14:16 Temp 98.5 Pulse 92 Resp 18 B/P (MAP) 162/75 Pulse Ox 98 O2 Flow Rate 0 Medical Decision Making Findings 54-year-old tested negative for on a DVT in her right lower extremity. Vessel ultrasound did make note of the suspected hematoma. At this time I am going to treat the patient for cellulitis in her left lower extremity Departure Disposition: 01 HOME / SELF CARE / HOMELESS Impression: Primary Impression: Peripheral vascular disease Additional Impressions: Hematoma Cellulitis Condition: Stable Discharge Instructions: Cellulitis, Adult Referrals: NO PRIMARY CARE PROVIDER (PCP) Prescriptions Cephalexin*Monohydrate* (Keflex*) 500 Mg Capsule 1 CAP PO Q8H for 10 Days, #30 CAP Prov: ORIANA JAUREGUI NP 08/18/25 Education Educated: Patient Educated regarding: diagnosis Signature Scribe Signature: deneen Attestation: Scribed for Oriana Jauregui Np by Oriana Escobar NP . 08/18/25 14:52 ORIANA JAUREGUI NP Aug 18, 2025 14:52
[2025-08-18] MEDS ORDERED: CEPH-585 PO (15:52)
--- NOTE | 2025-08-18 16:32 | VASCULAR REPORT ---
Technique: Real-time ultrasound imaging, with color Doppler and compression of the right common femoral vein, femoral vein, greater saphenous vein, and popliteal vein. Indication: Pain/hematoma Comparison: VASC VL VENOUS on DOS: 10/27/23 Findings: There is normal compressibility and flow augmentation in all of the imaged deep veins. There are no filling defects. There is a hypoechoic lesion within the superficial tissues of the medial right calf region measuring 1.8 x 0.5 cm. No definitive internal vascularity seen. Impression: No evidence of DVT in the right lower extremity 1.8 cm hypoechoic lesion in the right medial calf subcutaneous tissues, possibly complex fluid collection/hematoma Follow-up to resolution to exclude soft tissue mass/neoplastic etiology
== END 2025-08-18 16:25 | disposition home or self-care (01) ==
LOC: ER 14:15
DX: I73.9 Peripheral vascular disease, unspecified (principal); S80.11XA Contusion of right lower leg, initial encounter; L03.115 Cellulitis of right lower limb; I13.0 Hypertensive heart and chronic kidney disease with heart failure and stage 1 through stage 4 chronic kidney disease, or unspecified chronic kidney disease; N18.9 Chronic kidney disease, unspecified; I50.9 Heart failure, unspecified; E78.00 Pure hypercholesterolemia, unspecified; I25.2 Old myocardial infarction; G62.9 Polyneuropathy, unspecified; Z88.5 Allergy status to narcotic agent; Z90.710 Acquired absence of both cervix and uterus; Z79.899 Other long term (current) drug therapy; X58.XXXA Exposure to other specified factors, initial encounter; Y93.89 Activity, other specified; Y92.89 Other specified places as the place of occurrence of the external cause; Y99.8 Other external cause status
CPT/HCPCS: 93971; 99284